=== PATIENT | male | born 1955 | race Caucasian/White ===

== ENCOUNTER 2017-12-14 18:29 | Emergency (ER) | payer BC, OTHER ==
[2017-12-14] MEDS ORDERED: Pantoprazole 40 MG Tab.CR PO ONE (18:30)
[2017-12-14] MEDS ORDERED: Ondansetron 4 MG Tab.DIS PO ONE (18:30)
[2017-12-14 18:36] VITALS: BP 134/71
[2017-12-14] MEDS ORDERED: Ondansetron 4 MG/2 ML SDV IVPUSH ONE (18:56)
[2017-12-14] MEDS ORDERED: Sodium Chloride 0.9% 1,000 ML IV SCH (19:00)
--- NOTE | 2017-12-14 19:35 | EDM.PDOC ---
ED HPI GENERAL MEDICAL PROBLEM - General Chief Complaint: Gastrointestinal Problem Stated Complaint: LUQ PAIN, NAUSEA, DIARRHEA Time Seen by Provider: 12/14/17 19:17 Source of Information: Reports: Patient History Limitations: Reports: No Limitations - History of Present Illness INITIAL COMMENTS - FREE TEXT/NARRATIVE: Ivan is a 62 year old female with PMH of lung nodules, who presents to the ED via private vehicle with family with c/o intermittent episodes of nausea, vomiting, and diarrhea for the past 11 days. He reports that anytime he eats food he has these episodes about 30 minutes following it. He reports he does have somewhat of an achy sensation in his LUQ and epigastric area. Reports this sensation occurs after he eats. Does report the symptoms subside a few hours after eating. Does report when he has these symptoms he is lightheaded. He reports he has been trying to avoid these episodes by eating small amounts of food. He reports if he just "eats a snack" these symptoms do not happen. He reports he wants to eat and feels hungry, but avoids eating due to these symptoms. He reports normally he "has an iron gut and eats gas station food all the time." Denies any fever, chills, decreased appetite, chest pain, shortness of breath, URI symptoms, cough, dysuria, frequency, urgency. 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 Denies any drug use. Former smokes. Social ETOH use. - Related Data Allergies Allergy/AdvReac Type Severity Reaction Status Date / Time No Known Allergies Allergy Verified 12/14/17 18:38 Home Meds: Home Meds . [No Known Home Meds] 12/14/17 [History] Past Medical History HEENT History: Reports: Hard of Hearing, Impaired Vision Respiratory History: Reports: Other (See Below) Other Respiratory History: LUNG NODULES - Past Surgical History HEENT Surgical History: Reports: Other (See Below) Other HEENT Surgeries/Procedures: EAR SURGERY Musculoskeletal Surgical History: Reports: Other (See Below) Other Musculoskeletal Surgeries/Procedures:: RIGHT ELBOW SURGERY Social & Family History - Tobacco Use Smoking Status *Q: Former Smoker Used Tobacco, but Quit: Yes Month/Year Tobacco Last Used: 30 YEARS AGO - Caffeine Use Caffeine Use: Reports: Coffee ED ROS GENERAL - Review of Systems Review Of Systems: See Below Constitutional: Reports: Diaphoresis, Weight Loss. Denies: Fever, Chills, Weakness, Fatigue, Decreased Appetite HEENT: Reports: No Symptoms Respiratory: Reports: No Symptoms. Denies: Shortness of Breath, Wheezing, Pleuritic Chest Pain, Cough, Sputum Cardiovascular: Reports: Lightheadedness. Denies: Chest Pain, Dyspnea on Exertion, Edema, Syncope GI/Abdominal: Reports: Abdominal Pain (see HPI), Diarrhea, Nausea, Vomiting. Denies: Black Stool, Bloody Stool, Constipation, Decreased Appetite, Distension , Hematemesis : Denies: Dysuria, Flank Pain, Frequency, Hematuria, Urgency Musculoskeletal: Reports: No Symptoms Skin: Reports: No Symptoms Neurological: Reports: Dizziness. Denies: Confusion, Headache, Numbness, Tingling, Weakness Psychiatric: Reports: No Symptoms Hematologic/Lymphatic: Reports: No Symptoms Immunologic: Reports: No Symptoms ED EXAM, GI/ABD - Physical Exam Exam: See Below Exam Limited By: No Limitations General Appearance: Alert, WD/WN, No Apparent Distress Eyes: Bilateral: EOMI Nose: Normal Inspection, Normal Mucosa, No Blood Throat/Mouth: Normal Inspection, Normal Lips, Normal Teeth, Normal Gums, Normal Oropharynx, Normal Voice, No Airway Compromise Head: Atraumatic, Normocephalic Neck: Normal Inspection, Supple, Non-Tender, Full Range of Motion Respiratory/Chest: No Respiratory Distress, Lungs Clear, Normal Breath Sounds, No Accessory Muscle Use, Chest Non-Tender Cardiovascular: Normal Peripheral Pulses, Regular Rate, Rhythm, No Edema, No Gallop, No JVD, No Murmur, No Rub GI/Abdominal Exam: Soft, No Organomegaly, No Distention, No Abnormal Bruit, No Mass, Tender (epigastric area), Abnormal Bowel Sounds (hyperactive). No: Distended, Guarding, Rigid, Rebound, Hepatomegaly, Splenomegaly Back Exam: Normal Inspection, Full Range of Motion. No: CVA Tenderness (L), CVA Tenderness (R) Extremities: Normal Inspection, Normal Range of Motion, Non-Tender, Normal Capillary Refill, No Pedal Edema Neurological: Alert, Oriented, CN II-XII Intact, Normal Cognition, Normal Gait, Normal Reflexes, No Motor/Sensory Deficits Psychiatric: Anxious Skin Exam: Warm, Dry, Intact, Normal Color, No Rash Lymphatic: No Adenopathy Course - Vital Signs Last Recorded V/S: Last Vital Signs Temp 98.1 F 12/14/17 18:30 Pulse 73 12/14/17 18:30 Resp 16 12/14/17 18:30 BP 134/71 12/14/17 18:30 Pulse Ox 100 12/14/17 18:30 - Orders/Labs/Meds Orders: Active Orders 24 hr Category Date Time Status H PYLORI STOOL ANTIGEN [MREF] Stat Lab 12/14/17 20:51 Received Labs: Laboratory Tests 12/14/17 12/14/17 12/14/17 Range/Units 18:53 19:13 19:13 WBC 10.2 H (5.0-10.0) 10^3/uL RBC 4.86 (4.50-6.00) 10^6/uL Hgb 14.2 (14.0-18.0) g/dL Hct 40.2 (40.0-54.0) % MCV 82.7 (82.0-94.0) fL MCH 29.2 (27.0-32.0) pg MCHC 35.3 (33.0-38.0) g/dL RDW Coeff of Hollie 12.9 (11.0-15.0) % Plt Count 225 (150-400) 10^3/uL Add Manual Diff Yes Neutrophils % (Manual) 49 (35-85) % Lymphocytes % (Manual) 23 (21-55) % Monocytes % (Manual) 9 (2-12) % Eosinophils % (Manual) 19 H (0-5) % Sodium 140 (136-145) mEq/L Potassium 3.8 (3.5-5.0) mEq/L Chloride 103 (98-106) mEq/L Carbon Dioxide 27 (21-32) mmol/L BUN 11 (7-18) mg/dL Creatinine 1.2 (0.7-1.3) mg/dL Est Cr Clr Drug Dosing 66.75 mL/min Estimated GFR (MDRD) > 60 (>=60) mL/min Glucose 109 H D (75-99) mg/dL Calcium 8.3 L (8.4-10.1) mg/dL Total Bilirubin 1.1 H (0.0-1.0) mg/dL AST 13 L (15-37) U/L ALT 24 (12-78) U/L Alkaline Phosphatase 66 (46-116) U/L C-Reactive Protein < 0.2 L (0.2-0.8) mg/dL Total Protein 6.3 L (6.4-8.2) g/dL Albumin 3.4 (3.4-5.0) g/dL Amylase 39 (25-115) U/L Urine Color Yellow (YELLOW) Urine Appearance Clear (CLEAR) Urine pH 7.0 (4.5-8.0) Ur Specific [place] 1.020 (1.003-1.020) Urine Protein Negative (NEGATIVE) mg/dL Urine Glucose (UA) Negative (NEGATIVE) mg/dL Urine Ketones 80 H (NEGATIVE) mg/dL Urine Occult Blood Negative (NEGATIVE) Urine Nitrite Negative (NEGATIVE) Urine Bilirubin Negative (NEGATIVE) Urine Urobilinogen 1.0 (0.2-1.0) EU/dL Ur Leukocyte Esterase Negative (NEGATIVE) Urine RBC Not seen (0-5) /HPF Urine WBC Not seen (0-5) /HPF Meds: Medications Discontinued Medications Generic Name Dose Route Start Last Admin Trade Name Freq PRN Reason Stop Dose Admin Al Hydroxide/Mg Hydroxide 30 0 ml 12/14/17 20:15 12/14/17 20:22 ml/ Lidocaine HCl 15 ml PO 12/14/17 20:16 45 ml ONETIME ONE Administration Sodium Chloride 1,000 mls @ 999 mls/hr 12/14/17 19:00 12/14/17 19:05 Normal Saline IV 999 mls/hr ASDIRECTED EMILIA Administration Ondansetron HCl 4 mg 12/14/17 18:56 12/14/17 19:06 Zofran IVPUSH 12/14/17 18:57 4 mg ONETIME ONE Administration Ondansetron HCl 3 packet 12/14/17 20:39 12/14/17 20:47 Take Home: Ondansetron Odt 4 Mg, 2 Tab Pack PO 12/14/17 20:40 3 packet ONETIME ONE Administration Pantoprazole Sodium 40 mg 12/14/17 19:50 12/14/17 20:03 Protonix Iv IVPUSH 12/14/17 19:51 40 mg ONETIME ONE Administration Pantoprazole Sodium 1 packet 12/14/17 20:40 12/14/17 20:47 Take Home: Pantoprazole 40 Mg, 1 Tab Pack PO 12/14/17 20:41 1 packet ONETIME ONE Administration - Re-Assessments/Exams Free Text/Narrative Re-Assessment/Exam: 12/14/17 19:53 Discussed lab results with patient. All labs are stable. At this point I do not feel we have any need for emergent imaging. Patient reports relief of pain and symptoms after Zofran, GI cocktail, and protonix. Upon returning, patient reports he feels poor again. They wishes to talk with me again. Went in again and discussed normal lab findings with and patient as well as benign exam. Offered observation admit, but again voiced that I felt comfortable sending him home with all normal lab results. Discussed viral gastroenteritis and GERD with patient. Discussed that we would be getting stool results back and would let him know if I felt any treatment was necessary. Patient and then agreeable to discharge home. They do have follow up appointment scheduled with Tracy MARQUIS on Saturday. Discussed that often times in the ED we rule out any emergent cause of symptoms but further workup can be completed on outpaient basis. Departure - Departure Time of Disposition: 20:23 Disposition: Home, Self-Care 01 Condition: Good Clinical Impression: Gastroenteritis GERD (gastroesophageal reflux disease) Qualifiers: Esophagitis presence: esophagitis presence not specified Qualified Code(s): K21.9 - Gastro-esophageal reflux disease without esophagitis - Discharge Information *PRESCRIPTION DRUG MONITORING PROGRAM REVIEWED*: Not Applicable *COPY OF PRESCRIPTION DRUG MONITORING REPORT IN PATIENT BIANCA: Not Applicable Instructions: Food Choices for Gastroesophageal Reflux Disease, Adult, Gastroesophageal Reflux Disease, Adult, [id number] Referrals: Tracy Jackson PA-C [Primary Care Provider] - Forms: ED Department Discharge Additional Instructions: Keep scheduled appointment with Tracy MARQUIS for Saturday Discussed possibility of needing abdominal US/imaging if symptoms don't improve Maalox as needed for dyspepsia (pain) Immodium as needed for diarrhea Protonix daily Kermit diet Follow up as scheduled Saturday. We will notify you of stool results. - My Orders Last 24 Hours: My Active Orders 12/14/17 20:51 H PYLORI STOOL ANTIGEN [MREF] Stat - Assessment/Plan Last 24 Hours: My Active Orders 12/14/17 20:51 H PYLORI STOOL ANTIGEN [MREF] Stat
[2017-12-14 19:39] LABS: CHLORIDE,CL 103 mEq/L (98-106); SODIUM,NA 140 mEq/L (136-145)
[2017-12-14] MEDS ORDERED: Pantoprazole 40 MG Vial IVPUSH ONE (19:50)
[2017-12-14] MEDS ORDERED: Alum Hydrox/Mag Hydrox/Simeth 30 ML, Lidocaine 2% 15 ML PO ONE ×2 (20:15)
[2017-12-14] MEDS ORDERED: Take Home: Ondansetron 4 MG Tab.DIS, 2 Tab Pack PO ONE (20:39)
[2017-12-14] MEDS ORDERED: Take Home: Pantoprazole 40 MG Tab.CR, 1 Tab Pack PO ONE (20:40)
== END 2017-12-14 20:52 | disposition home or self-care (01) ==
LOC: CC.ED 18:29
DX: K52.9 Noninfective gastroenteritis and colitis, unspecified (principal); K21.9 Gastro-esophageal reflux disease without esophagitis; Z87.891 Personal history of nicotine dependence
CPT/HCPCS: 36415; 80053; 81001; 82150; 85025; 86140; 87338; 87493; 89055; 96365; 96375; 99284; A9270; C9113; J2405; J7030

== ENCOUNTER → 2017-12-27 | Day surgery (SDC) | payer OTHER ==
[~2017-12-27] MED LIST: Lactated Ringers 1,000 ML IV SCH; Propofol 200 MG/20 ML SDV IV ONE
[2017-12-27 12:44] VITALS: BP 102/63
--- NOTE | 2017-12-30 09:10 | OR ---
DATE OF OPERATION: 12/27/2017 PREOPERATIVE DIAGNOSIS: NAUSEA, VOMITING, AND DIARRHEA WITH WEIGHT LOSS. POSTOPERATIVE DIAGNOSIS: NAUSEA, VOMITING, AND DIARRHEA WITH WEIGHT LOSS. SURGEON: Colby Shen MD PROCEDURE: 1. ESOPHAGOGASTRODUODENOSCOPY WITH BIOPSIES X2, ALLISON. 2. FULL-LENGTH COLONOSCOPY WITH RANDOM BIOPSIES X7. 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 COMPLICATIONS: None. SPECIMEN: 1. Duodenal biopsy x2. 2. ALLISON. 3. Random colon biopsies x7. FINDINGS: 1. Full-length EGD. 2. Heterotopic gastric tissue, duodenal bulb. 3. Essentially normal colonoscopy with extremely poor prep. RECOMMENDATIONS: Medical followup with Tracy Jackson PA-C, the patient's primary, for further evaluation of patient's symptoms. INDICATIONS: The patient apparently has been having a 3-week history of some persistent nausea, vomiting, and weight loss with associated diarrhea, and Tracy sent him for upper and lower endoscopy. DESCRIPTION OF PROCEDURE: The patient was prepped and draped, placed in left lateral decubitus position. A lubricated Olympus gastroscope was inserted and easily intubated into the esophagus. Esophageal lining was benign in its entire course. The Z-line was crisp and sharp at 39.5 cm. No hernia, distal esophagitis, stricturing, ulceration, or Smith changes seen. The scope was advanced into the stomach through the pylorus, into the second portion of the duodenum. The second portion of duodenum was benign. Duodenal bulb had heterotopic gastric tissue, biopsied x2, and otherwise no lesions. Scope was brought back into the stomach and retroflexed. The upper fundus and cardia were completely benign. Upon straightening, the rest of the fundus and antrum showed no signs of peptic ulcer disease, polyp, mass, ulceration, lesion, or otherwise. ALLISON was obtained, air was suctioned from the stomach, and the scope was removed without complication. A lubricated Olympus colonoscope was inserted into the rectal vault and ultimately advanced to the cecum. The patient had an extremely poor bowel prep. It was very difficult to see in many areas, and there was a constant flow of liquid stool throughout most of the colon. He was very tortuous and difficult to navigate with. Because of this, we were able to get up along the cecal pouch but could not wrap around to get in the terminal ileum unfortunately. Upon withdrawal, many of these areas could not be evaluated thoroughly, so a smaller lesion certainly may have been missed. I could not find any other obvious signs of polyps, mass, ulceration, or bleeding sites. No signs of colitis or vascular abnormality. We did do random biopsies from the cecum to the rectum x7 but essentially unremarkable given the patient's poor prep, however, difficult to be completely sure. Air was suctioned, and the scope was removed without complication. NGUYỄN/RICHY /[id number]
== END ==
LOC: CC.SDS 10:03
PROVIDERS: ATTEND Family Medicine
DX: R19.7 Diarrhea, unspecified (principal); R11.2 Nausea with vomiting, unspecified; K31.89 Other diseases of stomach and duodenum; K21.9 Gastro-esophageal reflux disease without esophagitis; Z79.899 Other long term (current) drug therapy; Z87.891 Personal history of nicotine dependence
CPT/HCPCS: 43239; 45380; 87081; J2704; J7120